=== PATIENT | female | born 1995 | race Asian ===

== ENCOUNTER 2017-08-30 18:07 | Emergency (ER) | payer OTHER ==
[~2017-08-30] VITALS: Ht 157.5 cm; Wt 54.4 kg
[2017-08-30 20:41] VITALS: BP 115/66
== END 2017-08-30 20:41 | disposition home or self-care (01) ==
LOC: ED 18:07
DX: L50.0 Allergic urticaria (principal); Z88.8 Allergy status to other drugs, medicaments and biological substances
CPT/HCPCS: J1200; J7512